=== PATIENT | female | born 1965 | race African-American/Black ===

== ENCOUNTER 2021-05-30 15:31 | Emergency (ER) | payer MEDICAID ==
[~2021-05-30] VITALS: Ht 165.1 cm; Wt 70.0 kg
[2021-05-30] MEDS ORDERED: HYDR12.54 PO (15:36)
[2021-05-30 17:11] LABS: BASOPHILS % 0.5 % (0.0-2.0); EOSINOPHILS % 0.2 % (0.0-5.0); ETHANOL BLOOD < 10 mg/dL; HEMATOCRIT. 43.1 % (36.0-48.0); HEMOGLOBIN. 13.7 g/dL (12.0-16.0); INR 1.1; LYMPHOCYTES % 18.8 % (20.0-50.0); MEAN CORPUSCULAR HEMOGLOBIN 26.3 pg (28.0-32.0); MEAN CORPUSCULAR VOLUME 83.1 fL (81.0-99.0); MEAN PLATELET VOLUME 7.9 fl (7.4-10.4); MONOCYTES % 8.4 % (2.0-8.0); NEUTROPHILS % 72.1 % (40.0-76.0); PARTIAL THROMBOPLASTIN TIME 25.6 sec (23.4-31.0); PLATELET 392 x1000/uL (130-400); PROTHROMBIN TIME 11.4 sec (9.6-11.0); RED BLOOD CELL COUNT 5.19 mill/uL (4.2-5.4); RED CELL DISTRIBUTION WIDTH 18.8 % (11.6-14.6)
[2021-05-30 17:35] LABS: CHLORIDE 89 mEq/L (98-107)
[2021-05-30 18:21] LABS: CLARITY URINE CLEAR (CLEAR); COLOR URINE DARK YELLOW (YELLOW); KETONES URINE TRACE (NEGATIVE); LEUKOCYTE ESTERASE URINE TRACE (NEGATIVE); NITRITE URINE NEGATIVE (NEGATIVE); OCCULT BLOOD URINE 2+ (NEGATIVE); PH URINE 5.5 (4.5-8.0); PROTEIN URINE 2+ (NEGATIVE); SPECIFIC GRAVITY URINE 1.029 (1.005-1.030)
[2021-05-30 18:43] LABS: *AMPHETAMINES SCREEN URINE NEGATIVE (NEGATIVE); *BARBITURATES SCREEN URINE NEGATIVE (NEGATIVE); *BENZODIAZEPINES SCREEN URINE NEGATIVE (NEGATIVE); *COCAINE SCREEN URINE NEGATIVE (NEGATIVE)
[2021-05-30 18:44] LABS: CANNABINOID URINE SCREEN PRESUMTIVE POSITIVE (NEGATIVE); METHADONE URINE SCREEN NEGATIVE (NEGATIVE); OPIATES URINE SCREEN NEGATIVE (NEGATIVE); PHENCYCLIDINE URINE SCREEN NEGATIVE (NEGATIVE)
[2021-05-30] MEDS ORDERED: HALOPERIDOL LACTATE 5MG/ML VIAL IM ONE (19:00)
[2021-05-30] MEDS ORDERED: MIDAZOLAM HCL 2 MG/2 ML VIAL IV ONE (19:00)
[2021-05-30] MEDS ORDERED: MANNITOL 12.5G (25%) VIAL 50ML IV NR (22:00)
[2021-05-30] MEDS ORDERED: LEVETIRACETAM 500MG PREMIX 100 ML IV NR (22:00)
[2021-05-30] MEDS ORDERED: MANNITOL 20% 350 ML IV NR (22:15)
[2021-05-30] MEDS ORDERED: LABETALOL HCL VIAL 20 MG/4 ML VIAL IV ONE (23:15)
[2021-05-30] MEDS ORDERED: IOHEXOL-300 100 ML BOTTLE ONE (23:21)
[2021-05-30] MEDS ORDERED: LABETALOL 5MG/ML SYR 20 MG/4 ML SYRINGE IV NR (23:30)
[2021-05-31 01:14] VITALS: BP 122/80
== END 2021-05-31 01:25 | disposition short-term general hospital (02) ==
LOC: ER 15:31 → CANBEDREQ 22:48 → ER 05-31 01:25
DX: R41.82 Altered mental status, unspecified (principal); G91.9 Hydrocephalus, unspecified; Z20.822 Contact with and (suspected) exposure to COVID-19; I10 Essential (primary) hypertension; E87.1 Hypo-osmolality and hyponatremia; E87.6 Hypokalemia; D72.829 Elevated white blood cell count, unspecified; R00.0 Tachycardia, unspecified
CPT/HCPCS: 36415; 70450; 70496; 71045; 80048; 80076; 80305; 80307; 80320; 80329; 81003; 82140; 82962; 83605; 83930; 84443; 85025; 85610; 85730; 86592; 87040; 87086; 87426; 93005; 96365; 96367; 96372; 96375; 99285; J1630; J1953; J3490; Q9967; Z7610; J2150; J2250; G0480